=== PATIENT | male | born 1985 | race Caucasian/White ===

== ENCOUNTER → 2016-05-31 | Emergency (ER) | payer OTHER ==
--- NOTE | 2016-05-31 23:05 | ED CLINICAL REPORT ---
Clinical Report - Physicians/Mid Levels [facility] [address] [place] [address] 05/31/2016 20:26 Patient: BUSHRA SILVER *This is a preliminary document and is subject to change Time Seen: 22:06. Arrived- By private vehicle. Historian- patient. Yamel Mart MD
--- NOTE | 2016-05-31 23:05 | ED ORDER SUMMARY ---
..... Patient: BUSHRA SILVER OrderSheet [facility] VisitID: [id number] [address] [place] [place] [address] 30y, M Registration Date/Time: 05/31/2016 ORDER SHEET Weight: Allergies: GENERAL ORDERS: CBC w Diff Urgent (22:05/31/2016 Santosh BOONE) (Ack 22:22 Melody ER Tech1) CMP Urgent (:05/31/2016 Santosh BOONE) (Ack 22:22 Melody ER Tech1) UA-Culture if indicated Urgent (:05/31/2016 Santosh BOONE) (Ack 22:22 Melody ER Tech1) MEDICATION ORDERS: IV FLUIDS: IV NS : initial bolus 1000 mL (1000 mL/hr), then 1000 mL/hr (NOW) (22:05/31/2016 Santosh BOONE) ORDER SHEET NOTES: This document has not been locked and should not be saved in the medical record.
--- NOTE | 2016-05-31 23:05 | ED ORDER SUMMARY ---
..... Patient: BUSHRA SILVER OrderSheet [facility] VisitID: [id number] [address] [place] [address] 30y, M Registration Date/Time: 05/31/2016 ORDER SHEET Weight: Allergies: GENERAL ORDERS: CBC w Diff Urgent (22:05/31/2016 Santosh BOONE) (Ack 22:22 Melody ER Tech1) CMP Urgent (:05/31/2016 Santosh BOONE) (Ack 22:22 Melody ER Tech1) UA-Culture if indicated Urgent (:05/31/2016 Santosh BOONE) (Ack 22:22 Melody ER Tech1) MEDICATION ORDERS: IV FLUIDS: IV NS : initial bolus 1000 mL (1000 mL/hr), then 1000 mL/hr (NOW) (22:05/31/2016 Santosh BOONE) ORDER SHEET NOTES: This document has not been locked and should not be saved in the medical record.
--- NOTE | 2016-05-31 23:05 | ED CLINICAL REPORT ---
Clinical Report - Physicians/Mid Levels [facility] [address] [place] [address] 05/31/2016 20:26 Patient: BUSHRA SILVER *This is a preliminary document and is subject to change Time Seen: 22:06. Arrived- By private vehicle. Historian- patient. Yamel Mart MD
== END ==
LOC: ED SRH 20:25
DX: Z53.21 Procedure and treatment not carried out due to patient leaving prior to being seen by health care provider (principal)

== ENCOUNTER 2016-06-22 22:10 | Emergency (ER) | payer OTHER ==
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
--- NOTE | 2016-06-22 23:26 | ED ORDER SUMMARY ---
..... Patient: BUSHRA SILVER OrderSheet [facility] VisitID: [id number] [address] [place] [address] 30y, M Registration Date/Time: 06/22/2016 ORDER SHEET Weight: 104.3 kg (stated) Allergies: None GENERAL ORDERS: POC Glucose (22:27 06/22/2016 Eva BOONE) (22:34 Shiela Delvalle.NEl) Lumbar Spine 2 or 3V Urgent (23:00 06/22/2016 Eva BOONE) (Ack 23:01 PWeiler ER Tech1) ([facility] MEDICATION ORDERS: IV FLUIDS: ORDER SHEET NOTES: [Electronically signed by Celia Lowry R.N. (23:40 06/22/2016)] [Electronically signed by Yonis Cunha MD (23:40 06/22/2016)] [Electronically locked/signed by Celia Lowry R.N. (23:40 06/22/2016)]
--- NOTE | 2016-06-22 23:26 | ED NURSING NOTES ---
Clinical Report - Nurses [facility] [address] [place] [address] 06/22/2016 22:09 [id number] Triage time 22:14 Apr 2016. Chief Complaint: RIGHT LOWER EXTREMITY TINGLING. Location of symptoms- (pt reports last night bilat leg "tingling" - pt also has type 2 diabetes and reports his glucose has been high with readings from 240-400, bgl at 1900 was 240). LEFT LOWER EXTREMITY TINGLING. Alert. No acute distress. SEPSIS SCREEN: Sepsis Screen. Negative (no infection suspected/documented). SADE COMA SCORE: Sade Coma Scale: 15- eyes open spontaneously (4); best verbal response- oriented x 4 (5); best motor response- obeys commands (6). --22:23 Celia Lowry R.N. 22:14 06/22/16. BP: 142/83. HR: 86. RR: 17. O2 saturation: 98%. Temp: 97.9 F. Pain level now: 2/10. Additional comments: describes pain "it's more irritating" . --22:23 Celia Lowry R.N. Weight: 104.3 kg stated. Height/Length: 74 inches Per Patient. BMI: 29.5. --22:20 Celia Lowry R.N. Medications MetFORMIN HCl Oral (Tablet 850 mg) 1 tablet, 2x a day. --22:18 Celia Lowry R.N. HumaLOG Subcutaneous (10 units every morning and 20 units at bedtime). --22:18 Celia Lowry R.N. Medication/allergy information source: the patient. --22:23 Celia Lowry R.N. Allergies None. --22:19 Celia Lowry R.N. History Arrived by private vehicle. Historian: patient. Accompanied by friend. No injury occurred. This occurred last night. Treatment REGISTERED RESPIRATORY THERAPIST: None. PAST MEDICAL HX: Tetanus status: up-to-date. Immunizations: up-to-date. SOCIAL HX: Heavy tobacco smoker- 1-2 packs per day. Alcohol use. (stopped drinking 2 months ago). No infectious disease exposure. ABUSE ASSESSMENT: No report of abuse. SELF HARM ASSESSMENT: A self harm assessment was performed. The patient answered "no" to the question "Have you recently felt down, depressed, or hopeless?", "Have you noticed less interest or pleasure in doing things?", "Do you have thoughts of harming or killing yourself?", "Are you here because you tried to hurt yourself?", "Have you ever tried to hurt yourself before today?", "Have you recently had thoughts about harming or killing others?" and "Do you have any dangerous items in your possession?". FALL RISK ASSESSMENT: Fall risk assessment completed. No fall risk identified. NUTRITIONAL RISK ASSESSMENT: The nutritional risk assessment revealed no deficiencies. FUNCTIONAL ASSESSMENT: Functional assessment: no impairments noted. LEARNING NEEDS ASSESSMENT: The learning needs assessment revealed no barriers. SKIN INTEGRITY ASSESSMENT: Skin integrity risk assessment completed. No skin integrity risk identified. --22:23 Celia Lowry R.N. PROBLEMS: Diabetes Mellitus. Dental Pain. Dental Caries. --22:19 Celia Lowry R.N. Asthma [Resolved]. --22:19 Celia Lowry R.N. ADDITIONAL SURGERIES: Fracture Repair. --22:19 Celia Lowry R.N. Interventions ID band on patient. To treatment room. --22:23 Celia Lowry R.N. PHYSICAL ASSESSMENT Ambulatory to room. Patient gowned. GENERAL / NEURO / PSYCH: Oriented X 4. Alert. Appears in no acute distress. He has had numbness with tingling (denies numbness describes as "tingling"). EXTREMITIES: Extremity pulses are within normal limits. Extremities exhibit normal ROM. No lower extremity edema. Normal gait. SKIN: Skin intact. Skin is warm and dry. --22:25 Celia Lowry R.N. NURSING PROGRESS NOTES Patient gowned. Two patient identifiers checked. Call light placed in reach. Side rails up x 1. Bed placed in lowest position. Brakes of bed on. Patient ready for evaluation- chart flagged. --22:26 Celia Lowry R.N. Time-out completed immediately before the procedure per protocol: verified identity of patient (name, birthdate and medical record number). Point of care testing: performed by nurse. Glucose: 377. Result shown to the ED physician. --22:35 Celia Lowry R.N. DISPOSITION / DISCHARGE Departure time: 23:37 Jun 22 2016. No learning barriers present. Discharge instructions provided and reviewed with the patient. Reviewed medication(s) information. Prescription(s) given to the patient. Activity restrictions reviewed. Patient and senior systems administrator verbalized understanding. Written instructions provided in Macedonian. The patient was discharged by the physician. He was discharged home and accompanied by spouse. He left the Emergency Department ambulatory and via private vehicle. Patient driving. --23:39 Celia Lowry R.N. 23:36 06/22/16. BP: 138/78. HR: 79. RR: 15. O2 saturation: 99%. Temp: 98.1 F. Pain level now: 04/08. --23:39 Celia Lowry R.N. Locked/Released at 06/22/2016 23:40 by Celia Lowry R.N.
--- NOTE | 2016-06-22 23:26 | ED ORDER SUMMARY ---
..... Patient: BUSHRA SILVER OrderSheet [facility] VisitID: [id number] [address] [place] [address] 30y, M Registration Date/Time: 06/22/2016 ORDER SHEET Weight: 104.3 kg (stated) Allergies: None GENERAL ORDERS: POC Glucose (22:27 06/22/2016 Eva BOONE) (22:34 Shiela Delvalle.NEl) Lumbar Spine 2 or 3V Urgent (23:00 06/22/2016 Eva BOONE) (Ack 23:01 PWeiler ER Tech1) (23:[facility] MEDICATION ORDERS: IV FLUIDS: ORDER SHEET NOTES: [Electronically signed by Celia Lowry R.N. (23:40 06/22/2016)] [Electronically signed by Yonis Cunha MD (23:40 06/22/2016)] [Electronically locked/signed by Celia Lowry R.N. (23:40 06/22/2016)]
--- NOTE | 2016-06-22 23:26 | ED NURSING NOTES ---
Clinical Report - Nurses [facility] [address] [place] [address] 06/22/2016 22:09 [id number] Triage time 22:14 Apr 2016. Chief Complaint: RIGHT LOWER EXTREMITY TINGLING. Location of symptoms- (pt reports last night bilat leg "tingling" - pt also has type 2 diabetes and reports his glucose has been high with readings from 240-400, bgl at 1900 was 240). LEFT LOWER EXTREMITY TINGLING. Alert. No acute distress. SEPSIS SCREEN: Sepsis Screen. Negative (no infection suspected/documented). SADE COMA SCORE: Sade Coma Scale: 15- eyes open spontaneously (4); best verbal response- oriented x 4 (5); best motor response- obeys commands (6). --22:23 Celia Lowry R.N. 22:14 06/22/16. BP: 142/83. HR: 86. RR: 17. O2 saturation: 98%. Temp: 97.9 F. Pain level now: 2/10. Additional comments: describes pain "it's more irritating" . --22:23 Celia Lowry R.N. Weight: 104.3 kg stated. Height/Length: 74 inches Per Patient. BMI: 29.5. --22:20 Celia Lowry R.N. Medications MetFORMIN HCl Oral (Tablet 850 mg) 1 tablet, 2x a day. --22:18 Celia Lowry R.N. HumaLOG Subcutaneous (10 units every morning and 20 units at bedtime). --22:18 Celia Lowry R.N. Medication/allergy information source: the patient. --22:23 Celia Lowry R.N. Allergies None. --22:19 Celia Lowry R.N. History Arrived by private vehicle. Historian: patient. Accompanied by friend. No injury occurred. This occurred last night. Treatment CHICK[employer] AND [employer] CLEANER: None. PAST MEDICAL HX: Tetanus status: up-to-date. Immunizations: up-to-date. SOCIAL HX: Heavy tobacco smoker- 1-2 packs per day. Alcohol use. (stopped drinking 2 months ago). No infectious disease exposure. ABUSE ASSESSMENT: No report of abuse. SELF HARM ASSESSMENT: A self harm assessment was performed. The patient answered "no" to the question "Have you recently felt down, depressed, or hopeless?", "Have you noticed less interest or pleasure in doing things?", "Do you have thoughts of harming or killing yourself?", "Are you here because you tried to hurt yourself?", "Have you ever tried to hurt yourself before today?", "Have you recently had thoughts about harming or killing others?" and "Do you have any dangerous items in your possession?". FALL RISK ASSESSMENT: Fall risk assessment completed. No fall risk identified. NUTRITIONAL RISK ASSESSMENT: The nutritional risk assessment revealed no deficiencies. FUNCTIONAL ASSESSMENT: Functional assessment: no impairments noted. LEARNING NEEDS ASSESSMENT: The learning needs assessment revealed no barriers. SKIN INTEGRITY ASSESSMENT: Skin integrity risk assessment completed. No skin integrity risk identified. --22:23 Celia Lowry R.N. PROBLEMS: Diabetes Mellitus. Dental Pain. Dental Caries. --22:19 Celia Lowry R.N. Asthma [Resolved]. --22:19 Celia Lowry R.N. ADDITIONAL SURGERIES: Fracture Repair. --22:19 Celia Lowry R.N. Interventions ID band on patient. To treatment room. --22:23 Celia Lowry R.N. PHYSICAL ASSESSMENT Ambulatory to room. Patient gowned. GENERAL / NEURO / PSYCH: Oriented X 4. Alert. Appears in no acute distress. He has had numbness with tingling (denies numbness describes as "tingling"). EXTREMITIES: Extremity pulses are within normal limits. Extremities exhibit normal ROM. No lower extremity edema. Normal gait. SKIN: Skin intact. Skin is warm and dry. --22:25 Celia Lowry R.N. NURSING PROGRESS NOTES Patient gowned. Two patient identifiers checked. Call light placed in reach. Side rails up x 1. Bed placed in lowest position. Brakes of bed on. Patient ready for evaluation- chart flagged. --22:26 Celia Lowry R.N. Time-out completed immediately before the procedure per protocol: verified identity of patient (name, birthdate and medical record number). Point of care testing: performed by nurse. Glucose: 377. Result shown to the ED physician. --22:35 Celia Lowry R.N. DISPOSITION / DISCHARGE Departure time: 23:37 Jun 22 2016. No learning barriers present. Discharge instructions provided and reviewed with the patient. Reviewed medication(s) information. Prescription(s) given to the patient. Activity restrictions reviewed. Patient and electroencephalograph technologist verbalized understanding. Written instructions provided in Tam[place]. The patient was discharged by the physician. He was discharged home and accompanied by spouse. He left the Emergency Department ambulatory and via private vehicle. Patient driving. --23:39 Celia Lowry R.N. 23:36 06/22/16. BP: 138/78. HR: 79. RR: 15. O2 saturation: 99%. Temp: 98.1 F. Pain level now: 04/08. --23:39 Celia Lowry R.N. Locked/Released at 06/22/2016 23:40 by Celia Lowry R.N.
--- NOTE | 2016-06-22 23:41 | ED MED RECONCILIATION SUMMARY ---
Patient: BUSHRA SILVER Medication Reconciliation Report [facility] VisitID: [id number] [address] [place] [address] 30y, M Registration Date/Time: 06/22/2016 Weight: 104.3 kg Height/Length: 74 in. BMI: 29.5 ALLERGIES: None The patient's Home Medications are listed below: CONTINUE TAKING THE FOLLOWING MEDICATIONS: HumaLOG Subcutaneous, 10 units every morning and 20 units at bedtime MetFORMIN HCl Oral (850 mg) 1 tablet, 2x a day The source(s) of the original Home Medication information: patient The following Medications were given to the patient in the Emergency Department: None. The following Medications were prescribed to the patient: Ibuprofen 600mg tablets: take 1 tablet orally every 8 hours as needed for pain. Dispense thirty (30). No refills. -- Yonis Cunha MD
--- NOTE | 2016-06-22 23:41 | ED MAR SUMMARY ---
..... Medication Administration Record [facility] [address] [place] [address] Patient: BUSHRA SILVER Visit ID: [id number] 30y, M Weight: 104.3 kg Height/Length: 74 in BMI: 29.5 ALLERGIES: None
--- NOTE | 2016-06-22 23:41 | ED DISCHARGE INSTRUCTIONS ---
Patient: BUSHRA SILVER General Instructions [facility] VisitID: [id number] [address] [place] [address] 30y, M Registration Date/Time: 06/22/2016 Nontraumatic lumbar back pain associated with degenerative joint disease of the lumbar spine; degenerative disc disease of the lumbar spine. Chronic, poorly controlled diabetes with hyperglycemia. INSTRUCTIONS Apply ice for 20 minutes four times a day until better. Don't apply ice directly to skin and don't use while asleep. No lifting greater than 5 lbs, no bending or stooping or no prolonged sitting until well. (take your insulin directly when you return home as discussed.). Warnings: GENERAL WARNINGS: Return or contact your physician immediately if your condition worsens or changes unexpectedly, if not improving as expected, or if other problems arise. Your Current Medications: CONTINUE TAKING THE FOLLOWING MEDICATIONS: HumaLOG Subcutaneous : 10 units every morning and 20 units at bedtime. MetFORMIN HCl Oral : Tablet 850 mg, 1 tablet 2x a day. Prescription Medications: Ibuprofen 600mg tablets: take 1 tablet orally every 8 hours as needed for pain. Dispense thirty (30). No refills. Follow-up: Follow up with your doctor in five days if not better. Understanding of the discharge instructions verbalized by patient. ADDITIONAL INFORMATION Sciatica Sciatica ("Lumbar Radiculopathy") causes a pain that spreads from the lower back down into the buttock, hip and leg. Sometimes leg pain can occur without any back pain. Sciatica is due to irritation or pressure on a spinal nerve as it comes out of the spinal canal. This is most often due to a bulge or rupture of a nearby spinal disk (the cartilage cushion between each spinal bone), which presses on a nearby nerve. Other causes include spinal stenosis (narrowing of the spinal canal) and spasm of the pyriform muscle (a muscle in the buttocks that the sciatic nerve passes through). Sciatica may begin after a sudden twisting/bending force (such as in a car accident), or sometimes after a simple awkward movement. In either case, muscle spasm is commonly present and contributes to the pain. The diagnosis of sciatica is made from the symptoms and physical exam. Unless you had a physical injury (such as a car accident or fall), X-rays are usually not ordered for the initial evaluation of sciatica because the nerves and disks cannot be seen on an x-ray. If signs of a compressed nerve are present (for example, loss of tendon reflex or strength in the leg), an MRI (magnetic resonance imaging) scan will need to be scheduled as an outpatient. Most sciatica (80-90%) gets better with medicine, exercise, physical therapy. If symptoms continue after at least three months of medical treatment, surgery may be considered. Home Care: You may need to stay in bed the first few days. But, as soon as possible, begin sitting or walking to avoid problems with prolonged bed rest. When in bed, try to find a position of comfort. A firm mattress is best. Try lying flat on your back with pillows under your knees. You can also try lying on your side with your knees bent up towards your chest and a pillow between your knees. Avoid prolonged sitting. This puts more stress on the lower back than standing or walking. Some persons find relief with heat (hot shower, hot bath or heating pad) and massage, while others prefer cold packs (crushed or cubed ice in a plastic bag, wrapped in a towel). Try both and use the method that feels best for 20 minutes several times a day. You may use acetaminophen (Tylenol) or ibuprofen (Motrin, Advil) to control pain, unless another pain medicine was prescribed. [ NOTE: If you have chronic liver or kidney disease or ever had a stomach ulcer or GI bleeding, talk with your doctor before using these medicines.] Be aware of safe lifting methods and do not lift anything over 15 pounds until all the pain is gone. Follow Up with your doctor or this facility if your symptoms do not start to improve after one week. Physical therapy or further testing may be needed. [NOTE: If X-rays were taken, they will be reviewed by a radiologist. You will be notified of any new findings that may affect your care.] Get Prompt Medical Attention if any of the following occur: Pain becomes worse, not controlled by the prescribed medicine Weakness or numbness in one or both legs Numbness in the groin, genital area Loss of bowel or bladder control Degenerative Disk Disease Spinal disks are gel-filled cushions between the bones of the spine (vertebrae). The disks act like shock absorbers. Over time, the disks may break down. This disorder is called degenerative disk disease (DDD). DDD can affect the neck or back. It is one of the most common causes of low back pain. It is the leading cause of disability in people under age 45 in the [place]. The pain usually remains localized to the lower back or neck. Muscle spasm is often present and adds to the pain. Disk degeneration is a natural part of aging, although it does not cause pain in most persons. It may also occur as a result of repeated minor injuries due to daily activities, sports, or accidents. It may lead to osteoarthritis of the spine. Back pain related to disk disease may come and go or become chronic and last for months or years. If the disk bulges or ruptures (also called slipped disk or herniated disk), it can put pressure on a nearby spinal nerve and cause neck or back pain that spreads down one arm or leg. X-rays or MRI (magnetic resonance imaging) scan may aid in the diagnosis. For acute pain, treatment consists of anti-inflammatory drugs, muscle relaxants, rest, ice, or heat. Narcotic pain medicines may be needed for short-term treatment of sudden worsening of pain. Due to their addictive potential, narcotics are not advised for long-term pain management. Other types of medicines are preferred. Surgery is usually not used to treat this condition unless there is a complication (such as nerve root compression). Home Care: FOR NECK PAIN: Use a comfortable pillow that supports the head and keeps the spine in a neutral position. The head should not be tilted forward or backward. FOR BACK PAIN: Avoid prolonged sitting. This puts more stress on the lower back than standing or walking. Establishing a regular exercise program to strengthen the supporting muscles of the spine will make it easier to live with DDD. During the first2 days after a flare-up of your pain, apply anice pack to the painful area for 20 minutes every 2-4 hours. This will reduce swelling and pain.Heat (hot shower, hot bath, or heating pad) works well for muscle spasm. You can start with ice, then switch to heat after2 days. Some patients feel best alternating ice and heat treatments. Use the method that feelsbest to you. You may use acetaminophen (Tylenol) or ibuprofen (Motrin, Advil) to control pain, unless another pain medicine was prescribed. [NOTE: If you have chronic liver or kidney disease or ever had a stomach ulcer or GI bleeding, talk with your doctor before using these medicines.] Follow Up with your physician, or as directed by our staff. [NOTE: If x-rays, a CT scan or an MRI scan were taken, they will be reviewed by a radiologist. You will be notified of any new findings that may affect your care.] Return Promptly or contact your doctor if any of the following occur: Increasing back pain New weakness, numbness, or pain in one or both arms or legs Foot drop (foot drags when you walk) Loss of bowel or bladder control Numbness or tingling in the buttock or groin area Unexplained fever over 100.4F (38.0C) Diabetes with High Blood Sugar You have been treated for high blood sugar (hyperglycemia). This may be becauseof an infection or other illness;eating too many sweets or starches ; not taking enough insulin. Home care High blood sugar may cause symptoms that you can learn to recognize, such as these: If you feel like your blood sugar may be too high, measure it using a blood or urine test. If it is above your usual range, use the "sliding scale"rRegular insulin dose your doctor gave you to correct this. If no "sliding scale" orders were given, contact your doctor for further advice. If your blood sugar is over 300, and you can't reach your doctor, go to the hospital emergency room. Monitor and write down your blood sugars - and insulin dose, if you take insulin - atleast twice a day. Do this before breakfast and before dinner. Do this for the next 3 to 5 days. Follow-up care Follow up with your health care provderduring the next week to review your blood sugar records. You will find out if you need to adjust your dose of insulin or other medicine for blood sugar. When to seek medical care Get prompt medical attention if either of these occur: High blood sugar.Symptoms are frequent urination, feeling dizzy, thirst, headache, nausea or vomiting, abdominal pain, and drowsiness or loss of consciousness. Low blood sugar. Symptoms are fatigue, headache, shakes, excess sweating, hunger, anxiety, reduced vision, drowsiness, weakness, confusion or loss of consciousness, and seizure. Diabetes (General Information) Cells of the body need glucose (sugar) for fuel. Insulin is the hormone in the body that lets glucose move from the blood into the cells. Diabetes is a chronic health condition where the body is not able to produce enough insulin, or does not respond well to its own insulin. Because the glucose in the blood cannot get into the cells, it builds up in the blood causing high blood sugar (hyperglycemia). Your actual blood sugar level is a result of the balance between several factors. These include what kind of food you eat and how much of it you eat, how much exercise you get, and the amount of insulin present in your body. Eating too much of the wrong kinds of food or not taking diabetes medicine on time can cause high blood sugar. Infections can cause high blood sugar even if you are taking medicines correctly. Missing meals, not eating enough food, or taking too much diabetes medicine can lead to low blood sugar. Untreated over long periods of time, diabetes can cause serious problems such as heart disease, stroke, kidney failure, blindness, nerve pain or loss of feeling in the legs and feet, and gangrene of the feet. With good treatment keeping your blood sugar under control, you can prevent or delay the complications of diabetes. Normal blood sugar levels are 70-130 one to two hours before a meal and not more than 180 two hours after a meal. Home Care: Follow your prescribed diabetic diet and take insulin or oral diabetic medicine exactly as ordered. Monitor blood sugars as advised. Keep a log of your results. This will help your doctor adjust your medicines to keep your blood sugar under control. Try to achieve your ideal weight. Proper diet and exercise can reduce or eliminate the need to take diabetes medicine. Avoid tobacco smoking, which worsens the effect of diabetes on your circulation. The risk of a heart attack in a diabetic is 15 times more likely if you smoke. Pay attention to good foot care. If you have lost feeling in your feet you may not notice an injury or infection. Check your feet and between your toes at least once a week. Wear a medical alert bracelet or carry a card in your wallet explaining that you are diabetic. In the event that you become very ill and are unable to give this information, it will help medical personnel provide proper care. If you become sick with a cold, the flu, or an infection (viral or bacterial), please do the following: Review your diabetes sick plan and contact your physician as instructed. You may have been advised to call the doctor immediately if: Your blood sugar is above 240 while taking your diabetes medication Your urine ketone levels are above normal or showing high levels of ketones You have been vomiting more than 6 hours You experience difficulty to trouble breathing You develop a high fever or you have had a fever for a couple of days and you aren't getting better You become light-headed and more sleepy than usual Keep taking your oral diabetes medicine (pills) even if you have been vomiting and feeling sick. Contact your doctor immediately for advice because you may need insulin to lower your blood sugar until you recover from your illness. Keep taking your insulin, even if you have been vomiting and feeling sick. Call your doctor immediately and ask if a temporary adjustment of your insulin dose is needed based on your blood glucose (sugar) results. Check your blood sugar every 2 to 4 hours, or at least 4 times a day. Check your keytones often. If you are vomiting and having diarrhea, monitor them more frequently. Don't skip meals. Try to eat small meals on a regular schedule, even if you do not have an appetite. Drink water or other calorie-free, non-caffeinated liquids to stay hydrated. If you are nauseated or vomiting, drink small amounts (sips, a teaspoon) every 5 minutes. To prevent dehydration, try to drink a cup or 8 ounces of fluids every hour while you are awake. Always carry a source of fast-acting sugar with you in case you get symptoms of low blood sugar (below 70). At the first sign of low blood sugar, eat or drink 15 to 20 grams of fast-acting sugar to raise your blood sugar. Examples include: 3 to 4 glucose tablets (found at most drugstores) 4 ounces (1/2 cup) of regular (not diet) softdrinks 4 ounces (1/2 cup) of any fruit juice 8 ounces (1 cup) of milk 5 to 6 pieces of hard candy 1 tablespoon of honey Check your blood sugar 15 minutes after treating yourself. If it is still low (below 70), take another 15 to 20 grams of fast-acting sugar. Test again in 15 minutes. If it returns to normal (70 or above), eat a snack or meal to keep your blood sugar in a safe range. If it remains low, call your doctor or go to an emergency room. Follow Up with your doctor as advised by our staff. For more information, contact the [employer]. www.diabetes.org or 871-731-2819. Get Prompt Medical Attention if any of the following occur: HIGH BLOOD SUGAR: frequent urination, dizziness, drowsiness, thirst, headache, nausea or vomiting, abdominal pain, vision changes, fast breathing, confusion or loss of consciousness LOW BLOOD SUGAR: fatigue, headache, shakes, excess sweating, hunger, feeling anxious or restless, vision changes, drowsiness, weakness, confusion or loss of consciousness Chest pain or shortness of breath Dizziness or fainting Weakness of an arm or leg or one side of the face Trouble with speech or vision Ibuprofen Oral tablet What is this medicine? IBUPROFEN (eye BYOO proe fen) is a non-steroidal anti-inflammatory drug (NSAID). It is used for dental pain, fever, headaches or migraines, osteoarthritis, rheumatoid arthritis, or painful monthly periods. It can also relieve minor aches and pains caused by a cold, flu, or sore throat. How should I use this medicine? Take this medicine by mouth with a glass of water. Follow the directions on the prescription label. Take this medicine with food if your stomach gets upset. Try to not lie down for at least 10 minutes after you take the medicine. Take your medicine at regular intervals. Do not take your medicine more often than directed. A special MedGuide will be given to you by the pharmacist with each prescription and refill. Be sure to read this information carefully each time. Talk to your wood milling machine operator regarding the use of this medicine in children. Special care may be needed. What side effects may I notice from receiving this medicine? Side effects that you should report to your doctor or health healthcare business analyst as soon as possible: allergic reactions like skin rash, itching or hives, swelling of the face, lips, or tongue black or bloody stools, blood in the urine or in vomit breathing problems changes in vision chest pain general ill feeling or flu-like symptoms nausea or vomiting redness, blistering, peeling or loosening of the skin, including inside the mouth slurred speech or weakness on one side of the body stomach pain unexplained weight gain or swelling unusually weak or tired yellowing of eyes or skin Side effects that usually do not require medical attention (report to your doctor or health healthcare business analyst if they continue or are bothersome): constipation or diarrhea dizziness gas or heartburn stomach upset What may interact with this medicine? Do not take this medicine with any of the following medications: cidofovir ketorolac methotrexate pemetrexed This medicine may also interact with the following medications: alcohol aspirin diuretics lithium other drugs for inflammation like prednisone warfarin What if I miss a dose? If you miss a dose, take it as soon as you can. If it is almost time for your next dose, take only that dose. Do not take double or extra doses. Where should I keep my medicine? Keep out of the reach of children. Store at room temperature between 15 and 30 degrees C (59 and 86 degrees F). Keep container tightly closed. Throw away any unused medicine after the expiration date. What should I tell my health care provider before I take this medicine? They need to know if you have any of these conditions: asthma cigarette smoker drink more than 3 alcohol containing drinks a day heart disease or circulation problems such as heart failure or leg edema (fluid retention) high blood pressure kidney disease liver disease stomach bleeding or ulcers an unusual or allergic reaction to ibuprofen, aspirin, other NSAIDS, other medicines, foods, dyes, or preservatives or trying to get breast-feeding What should I watch for while using this medicine? Tell your doctor or healthcare professional if your symptoms do not start to get better or if they get worse. This medicine does not prevent heart attack or stroke. In fact, this medicine may increase the chance of a heart attack or stroke. The chance may increase with longer use of this medicine and in people who have heart disease. If you take aspirin to prevent heart attack or stroke, talk with your doctor or health healthcare business analyst. Do not take other medicines that contain aspirin, ibuprofen, or naproxen with this medicine. Side effects such as stomach upset, nausea, or ulcers may be more likely to occur. Many medicines available without a prescription should not be taken with this medicine. This medicine can cause ulcers and bleeding in the stomach and intestines at any time during treatment. Ulcers and bleeding can happen without warning symptoms and can cause . To reduce your risk, do not smoke cigarettes or drink alcohol while you are taking this medicine. You may get drowsy or dizzy. Do not drive, use machinery, or do anything that needs mental alertness until you know how this medicine affects you. Do not stand or sit up quickly, especially if you are an older patient. This reduces the risk of dizzy or fainting spells. This medicine can cause you to bleed more easily. Try to avoid damage to your teeth and gums when you brush or floss your teeth. You have been given the following additional information: Back Pain W/ Sciatica Degenerative Disk Disease Diabetic Hyperglycemia Diabetes, General Info Ibuprofen Oral tablet No lifting greater than 5 lbs, no bending or stooping or no prolonged sitting until well. (Electronically signed by Yonis Cunha MD 06/22/2016 23:40)
--- NOTE | 2016-06-22 23:41 | ED MAR SUMMARY ---
..... Medication Administration Record [facility] [address] [place] [address] Patient: BUSHRA SILVER Visit ID: [id number] 30y, M Weight: 104.3 kg Height/Length: 74 in BMI: 29.5 ALLERGIES: None
--- NOTE | 2016-06-22 23:41 | ED MED RECONCILIATION SUMMARY ---
Patient: BUSHRA SILVER Medication Reconciliation Report [facility] VisitID: [id number] [address] [place] [address] 30y, M Registration Date/Time: 06/22/2016 Weight: 104.3 kg Height/Length: 74 in. BMI: 29.5 ALLERGIES: None The patient's Home Medications are listed below: CONTINUE TAKING THE FOLLOWING MEDICATIONS: HumaLOG Subcutaneous, 10 units every morning and 20 units at bedtime MetFORMIN HCl Oral (850 mg) 1 tablet, 2x a day The source(s) of the original Home Medication information: patient The following Medications were given to the patient in the Emergency Department: None. The following Medications were prescribed to the patient: Ibuprofen 600mg tablets: take 1 tablet orally every 8 hours as needed for pain. Dispense thirty (30). No refills. -- Yonis Cunha MD
--- NOTE | 2016-06-23 07:09 | DIAGNOSTIC IMAGING REPORT ---
PROCEDURE: XR LUMBAR SPINE 2 OR 3 VIEWS INDICATION: LOWER EXTERMITY TINGLING TECHNIQUE: Three views of the lumbar spine COMPARISON: None. FINDINGS: Five lumbar-type vertebral bodies are present. No acute vertebral body fracture. Slight anterior vertebral body height loss of L1. Straightening of the normal lumbar lordosis without pathologic subluxation. Decreased disc height L5-S1. Trace retrolisthesis L5-S1 and mild facet arthropathy at this level. The visible osseous pelvis and bowel gas pattern are normal. IMPRESSION: 1. No acute fracture. 2. Moderate L5-S1 disc height loss and retrolisthesis. 3. Question remote fracture of L1.
== END 2016-06-22 23:37 | disposition home or self-care (01) ==
LOC: ED SRH 22:10
DX: M51.36 Other intervertebral disc degeneration, lumbar region (principal); M47.816 Spondylosis without myelopathy or radiculopathy, lumbar region; E11.65 Type 2 diabetes mellitus with hyperglycemia; Z79.4 Long term (current) use of insulin; Z79.84 Long term (current) use of oral hypoglycemic drugs; F17.219 Nicotine dependence, cigarettes, with unspecified nicotine-induced disorders
CPT/HCPCS: 90098

== ENCOUNTER 2016-07-01 11:47 | Outpatient (CLI) | payer OTHER ==
--- NOTE | 2016-07-01 12:24 | DIAGNOSTIC IMAGING REPORT ---
PROCEDURE: XR SHOULDER 2 OR MORE VW-RIGHT INDICATION: RIGHT SHOULDER PAIN, UNSPECIFIED CHRONICITY TECHNIQUE: Three views. COMPARISON: None. FINDINGS: Osseous structures, joint spaces and soft tissues are normal. IMPRESSION: 1. Normal right shoulder.
== END 2016-07-01 23:00 ==
LOC: XR SRH 11:47
DX: M25.511 Pain in right shoulder (principal)